=== PATIENT | female | born 1960 | race Caucasian/White ===

== ENCOUNTER 2024-08-08 09:12 | Day surgery (SDC) | payer BC ==
[2024-08-07 09:49] VITALS: BMI 29.2
[2024-08-08] MEDS ORDERED: Bupivacaine PF 0.5% 30 ML VIAL ONE (10:47)
[2024-08-08] MEDS ORDERED: fentaNYL 50 mcg/mL 1 mL Vial ONE ×2 (11:09→12:32)
[2024-08-08] MEDS ORDERED: PROPOFOL 20 ML ONE (11:09)
[2024-08-08] MEDS ORDERED: Lidocaine 1% PF 5 ML VIAL ONE (11:09)
[2024-08-08] MEDS ORDERED: CEFAZOLIN 2 GM VIAL ONE (11:13)
[2024-08-08] MEDS ORDERED: ePHEDrine Sulfate 50 MG/10 ML VIAL ONE (11:53)
[2024-08-08] MEDS ORDERED: HYDROcodone/Acetaminophen 5/325 mg Tablet ONE (13:14)
== END 2024-08-08 13:50 | disposition home or self-care (01) ==
LOC: CSHSDC 09:12
PROVIDERS: ATTEND Podiatrist Foot & Ankle Surgery
PROC: 0QBP0ZZ Excision of Left Metatarsal, Open Approach (ICD-10-PCS; principal; 2024-08-08)
PROC: 0QSP04Z Reposition Left Metatarsal with Internal Fixation Device, Open Approach (ICD-10-PCS; principal; 2024-08-08)
DX: M20.22 Hallux rigidus, left foot (principal); E07.9 Disorder of thyroid, unspecified; K21.9 Gastro-esophageal reflux disease without esophagitis; J45.909 Unspecified asthma, uncomplicated; M77.52 Other enthesopathy of left foot and ankle; L60.9 Nail disorder, unspecified; Z91.030 Bee allergy status; Z91.038 Other insect allergy status; Z98.890 Other specified postprocedural states; Z79.899 Other long term (current) drug therapy; Z79.890 Hormone replacement therapy
CPT/HCPCS: J0665; J2704; J3010